=== PATIENT | female | born 1985 | race American Indian/Alaskan Native ===

== ENCOUNTER 2020-07-06 17:01 | Outpatient (CLI) | payer MEDICAID ==
[2020-07-06] MEDS ORDERED: BETAMET ACET/BETAMET NA PH 6 MG/ML INJ 5 ML MDV IM SCH (18:00)
== END 2020-07-06 18:00 | disposition home or self-care (01) ==
LOC: TRG 17:01 → APU 17:02 → TRG 18:00
PROVIDERS: ATTEND Obstetrics & Gynecology
DX: O47.02 False labor before 37 completed weeks of gestation, second trimester (principal); O09.522 Supervision of elderly multigravida, second trimester; Z3A.23 23 weeks gestation of pregnancy
CPT/HCPCS: 96372; J0702

== ENCOUNTER 2020-07-07 14:43 | Outpatient (CLI) | payer MEDICAID ==
[2020-07-07] MEDS ORDERED: BETAMET ACET/BETAMET NA PH 6 MG/ML INJ 5 ML MDV IM NR (15:00)
== END 2020-07-07 15:10 | disposition home or self-care (01) ==
LOC: TRG 14:43 → APU 14:44 → TRG 15:10
PROVIDERS: ATTEND Obstetrics & Gynecology
DX: O47.02 False labor before 37 completed weeks of gestation, second trimester (principal); O09.522 Supervision of elderly multigravida, second trimester; Z3A.24 24 weeks gestation of pregnancy
CPT/HCPCS: 59025; 96372; J0702

== ENCOUNTER 2020-09-08 21:48 | Outpatient (CLI) | payer MEDICAID ==
[2020-09-08 22:16] VITALS: BP 134/89
[2020-09-08] MEDS ORDERED: LACTATED RINGERS 1,000 ML IV ONE (22:22)
[2020-09-08 22:40] LABS: Bacteria,Urine 1+ /HPF (Negative); Bilirubin,Urine NEG (Negative); Blood,Urine SM (Negative); Color,Urine Straw (Yellow); Protein,Urine <15 mg/dL mg/dL (Negative); Urobilinogen,Urine < 2.0 mg/dL (<2.0)
== END 2020-09-08 23:37 | disposition home or self-care (01) ==
LOC: TRG 21:48 → APU 21:56 → TRG 23:37
PROVIDERS: ATTEND Obstetrics & Gynecology
DX: O62.4 Hypertonic, incoordinate, and prolonged uterine contractions (principal); Z3A.33 33 weeks gestation of pregnancy
CPT/HCPCS: 59025; 81001